=== PATIENT | male | born 1960 | race Caucasian/White ===

== ENCOUNTER → 2016-05-24 | Outpatient (CLI) | payer OTHER ==
[~2016-05-24] MED LIST: ALBUAER INH; DOXY-300 PO; DXM/4 PO; FLUT0.0529 INTNAS; FOLI1TAB7 PO; GUAISYP4 PO; MULT-506 PO; ONDA8TAB6 PO; PRED-301 PO; PRED10TA PO; PROC1TAB5 PO; PROM25TA9 PO
--- NOTE | 2016-05-24 11:16 | DIAGNOSTIC IMAGING REPORT ---
CHEST 2 VIEWS ROUTINE HISTORY: Lung mass. Short of breath. COMPARISON: Chest 04/19/2016. FINDINGS: Progressive volume loss and within the right hemithorax. Increasing bilateral perihilar interstitial thickening/opacities. There is abnormal density overlying the right hilum with progressive right medial lung base density. No pneumothorax. No pleural effusions. IMPRESSION: 1. Progressive consolidation within the right lower lobe with associated volume loss. This may represent partial atelectasis the right lower lobe with associated progression of the airspace opacities. 2. Progressive perihilar reticulonodular interstitial thickening. Electronically signed by: Eugene Mederos M.D. 05/24/2016 11:21 AM Dictated Date/Time: 05/24/2016 11:14 AM
== END | disposition home or self-care (01) ==
LOC: C.RAD1850 10:54
PROVIDERS: ATTEND Internal Medicine Pulmonary Disease
DX: R91.8 Other nonspecific abnormal finding of lung field (principal)

== ENCOUNTER → 2016-08-21 | Outpatient (CLI) | payer OTHER ==
[~2016-08-21] MED LIST changes: -DOXY-300 PO; -PRED10TA PO
[2016-08-21 14:11] VITALS: BP 110/79; PULSE 114; TEMP 36.5; O2SAT 95
--- NOTE | 2016-08-21 15:19 | Radiation Oncology Follow-Up ---
Radiation Oncology Follow-Up Date of Visit Aug 21, 2016. (Ellie Lizama PA-C) Reason For Visit One-month follow-up (Ellie Lizama PA-C) Radiation Completion Date 07/23/16 (Ellie Lizama PA-C) Diagnosis (1) Lung cancer Status: Chronic Histology Subtype: adenocarcinoma Stage: IV Permanent Comment: STAGING: Lung, RLL, adenocarcinoma, [id number], stage UMESH ( metastatic disease to bilateral adrenal glands, intra-adbominal LNs) TREATMENT: 1. Carboplatin/Taxol chemotherapy - Dr. Viera - [place] 2. Carboplatin/Alimta chemotherapy - Dr. Aylin [place] [facility] [place]17/16 3. Status post completion of radiation therapy to PET-positive areas of the chest and bilateral adrenal glands. Radiation completed 04/02/2016 received 6000 cGy. 4. Metastatic disease to the brain - plan for WBRT - 07/06/2016 5. Status post completion of whole brain radiation therapy 07/23/2016 received 3000 cGy Last Edited By: Ellie Lizama on Jul 30, 2016 18:52 (Ellie Lizama PA-C) History of Present Illness Mr. 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 Patient was initially treated with chemotherapy and had an excellent response to treatment and then received consolidation chemotherapy which completed in March 2016. Of note, the patient did have a complication of adrenal crisis which was eventually controlled. More recently, the patient was having some headaches and Dr. Viera did order an MRI of the brain on 07/06/2016 which did reveal bilateral metastatic disease involving the brain. Dr. Viera did see the patient in follow -up evaluation recommended a course of whole brain radiation therapy. We are now seeing the patient follow up evaluation. Currently, the patient is relatively asymptomatic and his only complaint is headaches. He denies any focal neurologic deficits or any problems with his vision. Dr. Viera did prescribe him Decadron 4 mg 4 times a day. Status post completion of whole brain radiation therapy 07/23/2016 received 3000 cGy (Ellie Lizama PA-C) Interim History He's been doing well over this past month. He does have fatigue. He denies any headaches. There is some dryness of the ears externally and feeling of congestion of the ear canals. He has been seen by Dr. Viera. The dexamethasone was tapered and he is now down to prednisone 5 mg once a day. He started this dose approximate 2 weeks ago. At the end of treatment he had some mild nasal bleeding. This resolved without difficulty. This is not recurred. He does have some mild decrease in cognitive abilities. Dr. Dominguez has recommended a recheck MRI of the brain and that was scheduled for 09/17/2016. (Ellie Lizama PA-C) Allergies Coded Allergies: POLLEN (Unverified Allergy, Mild, POLLEN,DUST-NASAL CONGESTION, 04/19/16) Diphenhydramine (Verified Allergy, Unknown, Restless legs, 04/19/16) Ethanol (Verified Allergy, Unknown, Flushing, itching, rash, 04/19/16) Paclitaxel (Verified Allergy, Unknown, Flushing, itching, rash, 04/19/16) Polyoxyethylated [place] Oil (Verified Allergy, Unknown, Flushing, itching , rash, 04/19/16) Home Medications Scheduled Multivitamin (Multivitamin), 1 TAB PO DAILY Prednisone (Prednisone), 5 MG PO DAILY Scheduled PRN Albuterol Sulfate (Proventil Hfa), 2 PUFFS INH Q4H PRN for Shortness of Breath Fluticasone Propionate (Nasal) (Flonase), 2 SPRAYS INTNAS DAILY PRN for PRN Guaifenesin/Codeine (Robitussin-Ac Syrup), 5 ML PO Q6H PRN for Cough Review of Systems Gastrointestinal: Symptoms: WNL Oral: Symptoms: No Problems Respiratory: Symptoms: SOB With Exertion Respiratory Comments: sometimes sob on exertions, couple wks ago prod cough , clear now Urinary: Symptoms: WNL Skin: Other Skin Symptoms: laking, dry skin on head (Ellie Lizama PA-C) Physical Exam Vital Signs Date Time Temp Pulse Resp B/P Pulse Ox O2 Delivery O2 Flow Rate FiO2 08/21/16 14:11 36.5 114 18 110/79 95 Pain: Patient Pain Scale: 0 - 10 Initial Pain Intensity: 0.0 Fatigue: None General Appearance: no apparent distress Eyes: normal inspection, PERRL, EOMI, sclerae normal ENT: normal ENT inspection, hearing grossly normal, TMs normal (mild dryness of the auditory canals with no cerumen impaction. No erythema or drainage.) Neck: no adenopathy, thyroid normal Respiratory/Chest: lungs clear, no respiratory distress, no accessory muscle use Cardiovascular: regular rate, rhythm, no gallop, no murmur Abdomen: non tender, soft Extremities: no pedal edema Neurologic/Psychiatric: no motor/sensory deficits, alert, normal mood/affect Skin: warm/dry (Ellie Lizama PA-C) Assessment & Plan Plan: He was seen and examined by Dr. Garcia. He is scheduled for recheck MRI of the brain on 09/17/2016. Continue with follow-up in endocrinology. Future appointment has been scheduled. He continues on prednisone 5 mg daily. We asked him to return to our office in September. We'll review the findings of the MRI. He may call our office if he has the questions or concerns in the interim. (Ellie Lizama PA-C) I agree with note created by Ellie Lizama PA-C. I reviewed the patient's chart and information with her. I have examined and evaluated the patient. I reviewed relevant clinical information and answered the patient's and/or family' s questions. (Veeral. Garcia MD) Total Time In Follow-Up Visit 20 minutes speaking to the patient and performing examination. I spent 15 minutes reviewing information and completing this note. (Ellie Lizama PA-C) I spent 15 minutes examining and counseling the patient. (Veeral. Garcia MD) Copy To Jass Holland MD; Merrill Viera M.D. Problem Qualifiers (1) Lung cancer: Laterality: right Lung location: lower lobe of lung Qualified Codes: C34.31 - Malignant neoplasm of lower lobe, right bronchus or lung
== END | disposition home or self-care (01) ==
LOC: C.ONC 14:00
PROVIDERS: ATTEND Physician Assistant Medical
DX: Z08 Encounter for follow-up examination after completed treatment for malignant neoplasm (principal); Z92.3 Personal history of irradiation; Z85.118 Personal history of other malignant neoplasm of bronchus and lung

== ENCOUNTER → 2016-09-26 | Outpatient (CLI) | payer OTHER ==
[~2016-09-26] MED LIST changes: -DXM/4 PO; -PROM25TA9 PO
[2016-09-26 12:59] VITALS: BP 103/73; PULSE 92; TEMP 36.3; O2SAT 96
--- NOTE | 2016-09-26 16:55 | Radiation Oncology Follow-Up ---
Radiation Oncology Follow-Up Date of Visit September 26, 2016. (Ellie Lizama PA-C) Reason For Visit 2 month follow-up (Ellie Lizama PA-C) Radiation Completion Date Chest/bilateral adrenal glands 04/02/16;Brain 07/23/16 (Ellie Lizama PA-C) Diagnosis (1) Lung cancer Status: Chronic Onset Date: 11/03/2014 Stage: IV Permanent Comment: STAGING: Lung, RLL, adenocarcinoma, [id number], stage UMESH ( metastatic disease to bilateral adrenal glands, intra-adbominal LNs) TREATMENT: 1. Carboplatin/Taxol chemotherapy - Dr. Viera - [place] 2. Carboplatin/Alimta chemotherapy - Dr. Aylin [place] - last cycle 01/17/16 3. Status post completion of radiation therapy to PET-positive areas of the chest and bilateral adrenal glands. Radiation completed 04/02/2016 received 6000 cGy. 4. Metastatic disease to the brain - plan for WBRT - 07/06/2016 5. Status post completion of whole brain radiation therapy 07/23/2016 received 3000 cGy Last Edited By: Ellie Lizama on Jul 30, 2016 18:52 (Ellie Lizama PA-C) History of Present Illness Mr. 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 Patient was initially treated with chemotherapy and had an excellent response to treatment and then received consolidation chemotherapy which completed in March 2016. Of note, the patient did have a complication of adrenal crisis which was eventually controlled. More recently, the patient was having some headaches and Dr. Viera did order an MRI of the brain on 07/06/2016 which did reveal bilateral metastatic disease involving the brain. Dr. Viera did see the patient in follow -up evaluation recommended a course of whole brain radiation therapy. We are now seeing the patient follow up evaluation. Currently, the patient is relatively asymptomatic and his only complaint is headaches. He denies any focal neurologic deficits or any problems with his vision. Dr. Viera did prescribe him Decadron 4 mg 4 times a day. Status post completion of whole brain radiation therapy 07/23/2016 received 3000 cGy (Ellie Lizama PA-C) Interim History He has been doing well over the past 2 months. Steady increase of energy levels. Occasional minor headache. He rates this a level 0.5-1. This is located in the occipital area. He has no associated nausea with headaches. He has noticed on rare occasions some cognitive difficulties. This occurred when he was getting gas and cannot remember if he swiped his credit card. He has seen Dr. Dominguez in follow-up and had a recheck MRI of the brain. The MRI was performed on 09/17/2016. This showed 7 discrete intraparenchymal enhancing lesions are identified which have all decreased in size compared to an MRI of the 07/06/2016. He previously depicted punctate enhancing focus within the left frontal lobe subcortical white matter is not clearly appreciated on the current examination, possibly secondary to interval resolution. The largest enhancing lesion is within the right frontal lobe and measures up to roughly 1.7 x 1.5 x 1.3 cm. Interval decrease in associated mass effect and vasogenic edema, with regions of persistent edema, as described. No specific significant cerebellar tonsillar herniation. No definite discrete suspicious calvarial marrow lesion is identified. 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 He weaned off of Decadron. He does continue on a daily dose of prednisone. (Ellie Lizama PA-C) Allergies Coded Allergies: POLLEN (Unverified Allergy, Mild, POLLEN,DUST-NASAL CONGESTION, 04/19/16) Diphenhydramine (Verified Allergy, Unknown, Restless legs, 04/19/16) Ethanol (Verified Allergy, Unknown, Flushing, itching, rash, 04/19/16) Paclitaxel (Verified Allergy, Unknown, Flushing, itching, rash, 04/19/16) Polyoxyethylated [place] Oil (Verified Allergy, Unknown, Flushing, itching , rash, 04/19/16) Home Medications Scheduled Multivitamin (Multivitamin), 1 TAB PO DAILY Prednisone (Prednisone), 5 MG PO DAILY Scheduled PRN Albuterol Sulfate (Proventil Hfa), 2 PUFFS INH Q4H PRN for Shortness of Breath Fluticasone Propionate (Nasal) (Flonase), 2 SPRAYS INTNAS DAILY PRN for PRN Guaifenesin/Codeine (Robitussin-Ac Syrup), 5 ML PO Q6H PRN for Cough Review of Systems Gastrointestinal: Symptoms: Nausea, Vomiting, Constipation GI Comments: Nausea with intermittent vomiting over past 1-2 weeks; Oral: Symptoms: No Problems Respiratory: Symptoms: Dry Cough, SOB With Exertion Other Respiratory: Reports this isn't a change for him;Doesn't use oxygen; Urinary: Symptoms: WNL Skin: Symptoms: No Problems (Ellie Lizama PA-C) Physical Exam Vital Signs Date Time Temp Pulse Resp B/P Pulse Ox O2 Delivery O2 Flow Rate FiO2 09/26/16 12:59 36.3 92 24 103/73 96 Fatigue: None General Appearance: no apparent distress Eyes: normal inspection, EOMI ENT: normal ENT inspection, hearing grossly normal, + pertinent finding ( bilateral cerumen right greater than left) Neck: no adenopathy, thyroid normal Respiratory/Chest: lungs clear, no respiratory distress, no accessory muscle use Cardiovascular: regular rate, rhythm, no gallop, no murmur Extremities: no pedal edema 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 (Ellie Lizama PA-C) Assessment & Plan Plan: Patient was seen and examined by Dr. Garcia. His energy level should steadily improve. The MRI results were reviewed with the patient. He has had excellent response to treatment with study decrease in size of the lesions. He has no new lesions. Dr. Garcia is recommended a recheck MRI of the brain in 2 months. He'll have a follow-up appointment following the MRI. For the cerumen in his ears it was suggested he try the [employer] earwax system. He may call our office if he has any questions or concerns in the interim. (Ellie Lizama PA-C) I agree with note created by Ellie Lizama PA-C. I reviewed the patient's chart and information with her. I have examined and evaluated the patient. I reviewed relevant clinical information and answered the patient's and/or family' s questions. (Veeral. Garcia MD) Total Time In Follow-Up We spent 25 minutes speaking to the patient in performing examination. I spent 15 minutes reviewing information in completing this note. (Ellie Lizama PA-C) I spent 15 minutes examining and counseling the patient. (Veeral. Garcia MD) Copy To Jass Holland MD; Merrill Viera M.D. Problem Qualifiers (1) Lung cancer: Laterality: right Lung location: upper lobe of lung Qualified Codes: C34.11 - Malignant neoplasm of upper lobe, right bronchus or lung
== END | disposition home or self-care (01) ==
LOC: C.ONC 12:51
PROVIDERS: ATTEND Physician Assistant Medical
DX: Z08 Encounter for follow-up examination after completed treatment for malignant neoplasm (principal); Z85.118 Personal history of other malignant neoplasm of bronchus and lung; Z92.3 Personal history of irradiation

== ENCOUNTER → 2016-11-22 | Outpatient (CLI) | payer OTHER ==
[2016-11-22 13:48] VITALS: BP 109/67; PULSE 104; TEMP 37; O2SAT 96
--- NOTE | 2016-11-22 16:47 | Radiation Oncology Follow-Up ---
Radiation Oncology Follow-Up Date of Visit Nov 22, 2016. (Ellie Lizama PA-C) Reason For Visit Four-month follow-up (Ellie Lizama PA-C) Radiation Completion Date Chest - 04/02/16, Brain - 07/23/16 (Ellie Lizama PA-C) Diagnosis (1) Lung cancer Status: Chronic Onset Date: 11/03/2014 Histology Subtype: adenocarcinoma Stage: IV Permanent Comment: STAGING: Lung, RLL, adenocarcinoma, [id number], stage UMESH ( metastatic disease to bilateral adrenal glands, intra-adbominal LNs) TREATMENT: 1. Carboplatin/Taxol chemotherapy - Dr. Viera - [facility] 2. Carboplatin/Alimta chemotherapy - Dr. Aylin [place] [facility] - last cycle 01/17/16 3. Status post completion of radiation therapy to PET-positive areas of the chest and bilateral adrenal glands. Radiation completed 04/02/2016 received 6000 cGy. 4. Metastatic disease to the brain - plan for WBRT - 07/06/2016 5. Status post completion of whole brain radiation therapy 07/23/2016 received 3000 cGy Last Edited By: Ellie Lizama on Jul 30, 2016 18:52 (Ellie Lizama PA-C) History of Present Illness Mr. 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 Patient was initially treated with chemotherapy and had an excellent response to treatment and then received consolidation chemotherapy which completed in March 2016. Of note, the patient did have a complication of adrenal crisis which was eventually controlled. More recently, the patient was having some headaches and Dr. Viera did order an MRI of the brain on 07/06/2016 which did reveal bilateral metastatic disease involving the brain. Dr. Viera did see the patient in follow -up evaluation recommended a course of whole brain radiation therapy. We are now seeing the patient follow up evaluation. Currently, the patient is relatively asymptomatic and his only complaint is headaches. He denies any focal neurologic deficits or any problems with his vision. Dr. Viera did prescribe him Decadron 4 mg 4 times a day. Status post completion of whole brain radiation therapy 07/23/2016 received 3000 cGy (Ellie Lizama PA-C) Interim History He is been doing well over the past 2 months. The headaches that he was having have become less frequent and less painful. He describes these as a mild headache across the back of the posterior occipital area. He'll take Aleve and this resolves. Over this past week he is taking Aleve twice. He has seen Dr. Dominguez in follow-up and had recheck studies. MRI of the brain revealed resolution of previously seen punctate focus of enhancement in the right frontal lobe area interval decrease in size of previously seen additional 6 discrete foci of enhancement involving bilateral cerebral hemispheres, suggestive of treatment response. Interval improvement of the vasogenic edema associated with some of these lesions. He also had a PET/CT which did show a new FDG avid soft tissue change with nodules consistent with metastatic disease superior to the inferior margin of the left scapula. There is just anterior to the left psoas muscle within the retroperitoneum. FDG avidity corresponding to a new right posterior eighth rib fracture. Stable low level activity within fibrotic changes in the right hilum along the right mediastinal border consistent with radiation-induced fibrosis. With these changes Dr. Viera has recommended the patient restart chemotherapy he'll be starting single agent Alimta next Saturday. He is to receive this every 3 weeks. He did note that previously he does recall injuring his rib. He does not have any pain in this area now. (Ellie Lizama PA-C) Allergies Coded Allergies: POLLEN (Unverified Allergy, Mild, POLLEN,DUST-NASAL CONGESTION, 04/19/16) Diphenhydramine (Verified Allergy, Unknown, Restless legs, 04/19/16) Ethanol (Verified Allergy, Unknown, Flushing, itching, rash, 04/19/16) Paclitaxel (Verified Allergy, Unknown, Flushing, itching, rash, 04/19/16) Polyoxyethylated [place] Oil (Verified Allergy, Unknown, Flushing, itching , rash, 04/19/16) Home Medications Scheduled Folic Acid (Folvite), 1 TAB PO DAILY Multivitamin (Multivitamin), 1 TAB PO DAILY Prednisone (Prednisone), 5 MG PO DAILY Scheduled PRN Albuterol Sulfate (Proventil Hfa), 2 PUFFS INH Q4H PRN for Shortness of Breath Fluticasone Propionate (Nasal) (Flonase), 2 SPRAYS INTNAS DAILY PRN for PRN Guaifenesin/Codeine (Robitussin-Ac Syrup), 5 ML PO Q6H PRN for Cough Review of Systems Gastrointestinal: Symptoms: Nausea, Vomiting, Constipation, Diarrhea GI Comments: Nausea and dry heaves 2-3x/month, goes between diarrhea/ constipation Oral: Symptoms: No Problems Respiratory: Symptoms: SOB With Exertion Other Respiratory: Dry cough at times - Sporadic Urinary: Symptoms: WNL Skin: Symptoms: No Problems Other Skin Symptoms: Reports skin on head is dry (Ellie Lizama PA-C) Physical Exam Vital Signs Date Time Temp Pulse Resp B/P (MAP) Pulse Ox O2 Delivery O2 Flow Rate FiO2 11/22/16 13:48 37.0 104 16 109/67 96 Fatigue: None General Appearance: no apparent distress Eyes: normal inspection, PERRL, EOMI ENT: normal ENT inspection, hearing grossly normal, TMs normal (mild cerumen), pharynx normal (mild white appearance to saliva.) Neck: no adenopathy, thyroid normal Respiratory/Chest: lungs clear, no respiratory distress, no accessory muscle use Cardiovascular: regular rate, rhythm, no gallop, no murmur Extremities: no pedal edema Neurologic/Psychiatric: 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 DATE OF DICTATION:11/14/2016 COMPARISON MRI dated 11/14/2016 and PET-CT dated 07/04/2016. TECHNIQUE Following the intravenous administration of approximately 7.43 mCi of FDG 18 and the oral administration of Gastrografin, PET/CT imaging was performed from the skull base to the mid thighs 60 minutes following the radiotracer injection. Low-dose CT was performed for anatomic localization and attenuation correction purposes only. The patient's glucose level at the time of radiotracer injection was 87mg/dL. This is a follow up PET/CT for the above indication. FINDINGS PET SCAN: Head / Neck: The previous hypo metabolism within the right frontal lobe is no longer included in the field of view. No other abnormal uptake can be identified. Chest: There is decreasing low level activity corresponding to fibrosis along the right hilar margin, likely secondary to prior radiation therapy. There is a small soft tissue nodule, just superficial to the left scapular musculature. Has a maximum SUV of 7.77. There is FDG activity corresponding to right posterior 8th rib fracture. There is low level activity corresponding to subpleural consolidation in the lateral basilar aspect of the right lower lobe. Abdomen: There is a new FDG avid 1.5 x 1.9 cm lymph node/nodule along the anterior margin of the left psoas muscle. It has a maximum SUV of 10.86, most consistent with neoplasm. Pelvis: There is mild focal activity within a sigmoid diverticulum, likely representing inflammation. No other abnormal uptake can be identified. Musculoskeletal / Other: Large segments of absent marrow activity present throughout the thoracic and lumbar spine. Patchy areas of degenerative type uptake are present. Uptake within the right posterior rib fracture as detailed above. CT SCAN: Head / Neck: Please see concurrent MRI of the brain for more complete intracranial evaluation. No acute process identified in the neck. Chest: Postradiation changes are present along the right hilar and right mediastinal margin. The overall appearance is similar to the previous examination. Traction bronchiectasis is present within the regions of fibrosis. Centrilobular emphysematous changes are present throughout both lungs. Peripheral bleb formation is noted. Bovine arch anomaly is incidentally noted, a variation of normal. Abdomen: Calcified adrenal nodules are again noted. The new para-aortic lymph node/ nodule is as detailed above. High-density material present within the urinary tract consistent with gadolinium excretion from the previous MRI. No other acute process identified. Atherosclerotic calcifications are present. Pelvis: There is sigmoid diverticulosis. High-density material present within the bladder as detailed above. Prostate calcifications are present. Musculoskeletal / Other: Degenerative changes present throughout the bony structures with mild convex right scoliosis of the spine. The right posterior 8th rib fracture is new since the previous examination. This is likely secondary to the previously radiated field, however, other etiologies cannot be entirely excluded. This soft tissue nodule superficial to the left inferior scapula is most consistent with metastatic disease. IMPRESSION 1. New FDG avid soft tissue nodules consistent metastatic disease. One is superficial to the inferior margin of the left scapula and the other is just anterior to the left psoas muscle, within the retroperitoneum. 2. FDG activity corresponding to a new right posterior 8th rib fracture. This could represent an insufficiency type rib fracture within a previously radiated field. Other etiologies or pathologic involvement are difficult to entirely exclude but felt less likely. 3. Stable low level activity within fibrotic changes at the right hilum along the right mediastinal border consistent with radiation induced fibrosis. 4. Please see current MRI of the brain for detailed intracranial evaluation. Authenticated By Authenticating Date Authenticating Time Reading Providers(s) JASE PIERRE MD 11-14-2016 15:55 JASE PIERRE MD 11/14/2016 2:55 PM - Interface, Rad In Narrative EXAM MR BRAIN WITH/WITHOUT CONTRAST - 11/14/2016 8:52 am HISTORY Prior history of brain metastases from lung cancer. Status post radiation. Assess status of brain. COMPARISON MR BRAIN WITH/WITHOUT CONTRAST dated 09/17/2016 TECHNIQUE Procedure: Multi-planar multi-sequential imaging obtained through the brain before and after administration of IV contrast. FINDINGS The previously seen punctate foci of enhancement in right frontal lobe is not appreciated on today's exam, likely representing interval resolution. There has been interval decrease in size of previously-seen 6 discrete foci of enhancement involving bilateral cerebral hemispheres with largest focus in the right frontal lobe measuring 1 cm in the longest dimension, previously 1.7 cm. There has been interval improvement of previously seen surrounding vasogenic edema associated with some of these lesions. A developmental venous anomaly is again noted in right paramedian parietal lobe the pain at distal focus of susceptibility, unchanged. . The superior sagittal sinus demonstrates normal venous flow. The corpus callosum is normal in shape and signal intensity. The posterior fossa is unremarkable. The pituitary and sella are normal. The brainstem and craniocervical junction are unremarkable. Diffusion weighted images reveal no hyperintensities to suggest acute cerebral infarction. The ventricles are normal in size and position without evidence of hydrocephalus. The paranasal sinuses are normal. The visualized portions of the mastoids are unremarkable. The orbits appear normal. Normal flow voids are demonstrated in the carotid arteries and basilar artery. IMPRESSION 1. Interval resolution of previously seen punctate focus of enhancement in the right frontal lobe. Interval decrease in size of previously seen additional 6 discrete foci of enhancement involving bilateral cerebral hemispheres, suggestive of treatment response. Interval improvement of the vasogenic edema associated with some of these lesions. 2. 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 Authenticated By Authenticating Date Authenticating Time Reading Providers(s) OCTAVIA PEREZ MD 11-14-2016 14:55 OCTAVIA PEREZ MD (Ellie Lizama PA-C) Assessment & Plan He was seen and examined by Dr. Garcia. The PET/CT as well as MRI were reviewed. He'll be restarting chemotherapy next Saturday with Sherry. Recommendation was for a recheck MRI in 2 months. We'll plan to perform that at [facility] following the [facility] protocol. We'll have him return to our office following a recheck MRI. We discussed steadily increasing his activities. He is going to start walking on a regular basis. He'll start at a slow pace and then increase. His been doing some light weight lifting. We discussed possible mild thrush. Because he takes prednisone daily this can be a recurring problem. We discussed eating activia to increase normal lynette. (Ellie Lizama PA-C) I agree with note created by Ellie Lizama PA-C. I reviewed the patient's chart and information with her. I have examined and evaluated the patient. I reviewed relevant clinical information and answered the patient's and/or family' s questions. (Veeral. Garcia MD) Total Time In Follow-Up I spent 20 minutes speaking to the patient and performing examination. I spent 15 minutes reviewing her information in completing this note. AK (Ellie Lizama PA-C) I spent 15 minutes examining and counseling the patient. REHABILITATION NURSE (Veeral. Garcia MD) Copy To Jass Holland MD; Merrill Viera M.D. Problem Qualifiers (1) Lung cancer: Laterality: right Lung location: lower lobe of lung Qualified Codes: C34.31 - Malignant neoplasm of lower lobe, right bronchus or lung
== END | disposition home or self-care (01) ==
LOC: C.ONC 13:40
PROVIDERS: ATTEND Physician Assistant Medical
DX: Z08 Encounter for follow-up examination after completed treatment for malignant neoplasm (principal); Z92.3 Personal history of irradiation; Z85.118 Personal history of other malignant neoplasm of bronchus and lung

== ENCOUNTER → 2017-01-11 | Outpatient (CLI) | payer OTHER ==
[~2017-01-11] MED LIST changes: +GADAVIST IV PRN
--- NOTE | 2017-01-11 12:18 | DIAGNOSTIC IMAGING REPORT ---
MRI OF THE BRAIN WITHOUT AND WITH IV CONTRAST CLINICAL HISTORY: Metastatic lung cancer. COMPARISON STUDY: MRI of the brain September 17, 2016. TECHNIQUE: Utilizing a 1.5 Marium magnet and dedicated coil, multiplanar, multiecho imaging of the brain was performed pre and postcontrast administration. IV administration of 8.8 mL of Gadavist contrast was uneventful. Thin cut post contrast imaging was performed with multiplanar reconstructions. FINDINGS: There are no areas of restricted diffusion. No acute intracranial hemorrhage, midline shift or mass effect is present. Ventricular system is normal. Basilar cisterns are patent. Flow-voids for the major intracranial vessels are present. Numerous enhancing lesion shown on MRI of September 17, 2016 have significantly decreased in size since prior exam. The largest lesion is within the right frontal lobe, now measuring 1 x 0.8 cm. This lesion previously measured 1.5 x 1.2 cm. Associated vasogenic edema has markedly improved. A 4 mm left occipital lobe lesion shown on image 91 of 134 previously measured 6 mm. A left occipital lobe lesion shown on image 67 is nearly imperceptible on this exam. A 5 mm right occipital lobe lesion shown image 55 has slightly decreased in size since prior exam. No new lesions are present with their no calvarial lesions. IMPRESSION: Findings consistent with a partial, but significant, treatment response since MRI of September 17, 2016. Significant decrease in size of multiple supratentorial metastases since prior MRI with improvement in associated vasogenic edema. No new lesions identified. Electronically signed by: Ben Mcmullen M.D. 01/11/2017 12:17 PM Dictated Date/Time: 01/11/2017 12:05 PM
== END | disposition home or self-care (01) ==
LOC: C.MRI 10:28
PROVIDERS: ATTEND Physician Assistant Medical
DX: C34.31 Malignant neoplasm of lower lobe, right bronchus or lung (principal); C79.31 Secondary malignant neoplasm of brain; C79.70 Secondary malignant neoplasm of unspecified adrenal gland

== ENCOUNTER → 2017-03-29 | Outpatient (CLI) | payer OTHER, MEDICARE ==
[~2017-03-29] MED LIST changes: -FOLI1TAB7 PO; +FOLI1TAB8 PO; -GADAVIST IV PRN; +ONDA-170 PO; -ONDA8TAB6 PO; +OPDIVO IV; +PROC10TA PO; -PROC1TAB5 PO; +VALA500T60 PO
[2017-03-29 10:42] VITALS: BP 112/72; PULSE 88; TEMP 36.4; O2SAT 97
--- NOTE | 2017-03-29 14:41 | Radiation Oncology Follow-Up ---
Radiation Oncology Follow-Up Date of Visit Mar 29, 2017. Reason For Visit One-month follow-up Radiation Completion Date SBRT 02/19/17 Diagnosis (1) Lung cancer Status: Chronic Onset Date: 11/03/2014 Location: brain metastasis Stage: IV Permanent Comment: STAGING: Lung, RLL, adenocarcinoma, [id number], stage UMESH ( metastatic disease to bilateral adrenal glands, intra-adbominal LNs) TREATMENT: 1. Carboplatin/Taxol chemotherapy - Dr. Viera [place] [facility] [place] 2. Carboplatin/Alimta chemotherapy - Dr. Viera - [facility] [place] - last cycle 01/17/16 3. Status post completion of radiation therapy to PET-positive areas of the chest and bilateral adrenal glands. Radiation completed 04/02/2016 received 6000 cGy. 4. Metastatic disease to the brain - plan for WBRT - 07/06/2016 5. Status post completion of whole brain radiation therapy 07/23/2016 received 3000 cGy 6. Status post brain SBRT completed 02/19/2017 received 3000 cGy Last Edited By: Ellie Lizama on Feb 28, 2017 09:45 History of Present Illness Mr. 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 Patient was initially treated with chemotherapy and had an excellent response to treatment and then received consolidation chemotherapy which completed in March 2016. Of note, the patient did have a complication of adrenal crisis which was eventually controlled. More recently, the patient was having some headaches and Dr. Viera did order an MRI of the brain on 07/06/2016 which did reveal bilateral metastatic disease involving the brain. Dr. Viera did see the patient in follow-up evaluation recommended a course of whole brain radiation therapy. We are now seeing the patient follow up evaluation. Currently, the patient is relatively asymptomatic and his only complaint is headaches. He denies any focal neurologic deficits or any problems with his vision. Dr. Viera did prescribe him Decadron 4 mg 4 times a day. Status post completion of whole brain radiation therapy 07/23/2016 received 3000 cGy He is been doing well over the past 2 months. The headaches that he was having have become less frequent and less painful. He describes these as a mild headache across the back of the posterior occipital area. He'll take Aleve and this resolves. Over this past week he is taking Aleve twice. He has seen Dr. Dominguez in follow-up and had recheck studies. MRI of the brain revealed resolution of previously seen punctate focus of enhancement in the right frontal lobe area interval decrease in size of previously seen additional 6 discrete foci of enhancement involving bilateral cerebral hemispheres, suggestive of treatment response. Interval improvement of the vasogenic edema associated with some of these lesions. He also had a PET/CT which did show a new FDG avid soft tissue change with nodules consistent with metastatic disease superior to the inferior margin of the left scapula. There is just anterior to the left psoas muscle within the retroperitoneum. FDG avidity corresponding to a new right posterior eighth rib fracture. Stable low level activity within fibrotic changes in the right hilum along the right mediastinal border consistent with radiation- induced fibrosis. With these changes Dr. Viera has recommended the patient restart chemotherapy he'll be starting single agent Alimta next Saturday. He is to receive this every 3 weeks. He did note that previously he does recall injuring his rib. He does not have any pain in this area now. Status post completion of whole brain radiation 07/23/2016. He received 3000 cGy He continues on chemotherapy. He is receiving Alimta every 3 weeks. He does have associated fatigue. He has nausea without vomiting. His respiratory status is stable. He does note shortness of breath with exertion. He is able to take breaks and recovering 5 minutes. He previously had oxygen at home. He was not using this so he returned it to the supplier. He does have a home pulse oximeter. He stated that he will be continuing the Alimta until the end of January. Dr. Viera has planned a recheck PET scan at that time. He denies any problems with frequent headaches. He has had no visual changes. He is noted no asymmetric weakness. He continues on his daily dose of prednisone which covers treatment of the RA as well as his adrenal insufficiency. More recently, the patient did have a repeat MRI of the brain completed on 01/11 which revealed stable disease with improvement in several areas. At this point, we have recommended consideration for consolidative linear accelerator based stereotactic radiosurgery to his remaining areas of disease given his good overall response and good performance status. Status post completion of brain SBRT 02/19/2017. He received 3000 cGy. Interim History He is been doing well over the past month. He does continue to have some decreased hearing due to your wax. We have previously discussed using over-the- counter medication. He had forgotten about this discussion and will plan to get [id number] Murine earwax system. He denies headaches. His energy levels are steadily improving. He feels his respiratory status is stable. His appetite is good and weight is stable. He feels that he has become more sedentary over the past few months. He is planning to join the [facility] and start regular exercise program. He has been followed closely by Dr. Viera and had recheck scanning. This unfortunately did show some progression. They have discussed restarting treatment with Keytruda. It is planned that he'll continue on a chemotherapy holiday for the next month. Dr. iVera will be retiring and he will be followed by Dr. Cleveland Garcia. Allergies Coded Allergies: POLLEN (Unverified Allergy, Mild, POLLEN,DUST-NASAL CONGESTION, 04/19/16) Diphenhydramine (Verified Allergy, Unknown, Restless legs, 04/19/16) Ethanol (Verified Allergy, Unknown, Flushing, itching, rash, 04/19/16) Paclitaxel (Verified Allergy, Unknown, Flushing, itching, rash, 04/19/16) Polyoxyethylated [place] Oil (Verified Allergy, Unknown, Flushing, itching , rash, 04/19/16) Home Medications Scheduled Multivitamin (Multivitamin), 1 TAB PO DAILY Prednisone (Prednisone), 5 MG PO DAILY Scheduled PRN Albuterol Sulfate (Proventil Hfa), 2 PUFFS INH Q4H PRN for Shortness of Breath Fluticasone Propionate (Nasal) (Flonase), 2 SPRAYS INTNAS DAILY PRN for PRN Guaifenesin/Codeine (Robitussin-Ac Syrup), 5 ML PO Q6H PRN for Cough Ondansetron Hcl (Zofran), 8 MG PO TID PRN for Nausea Prochlorperazine Maleate (Compazine), 1 TAB PO Q6 PRN for Nausea or Vomiting Review of Systems Gastrointestinal: Symptoms: WNL Oral: Symptoms: No Problems Respiratory: Symptoms: Dry Cough, SOB With Exertion, Productive Cough Sputum Character: "White phlegm" when productive - improving Other Respiratory: SOB w/exertion - improving Urinary: Symptoms: WNL Skin: Symptoms: No Problems Physical Exam Vital Signs Date Time Temp Pulse Resp B/P (MAP) Pulse Ox O2 Delivery O2 Flow Rate FiO2 03/29/17 10:42 36.4 88 16 112/72 97 Fatigue: None General Appearance: no apparent distress Eyes: normal inspection, EOMI ENT: normal ENT inspection, hearing grossly normal, + pertinent finding (dry cerumen in the auditory canals) Neck: no adenopathy, thyroid normal Respiratory/Chest: no respiratory distress, no accessory muscle use, + rales ( mild in the right lower lung hoang. These cleared with deep respiration.) Cardiovascular: regular rate, rhythm, no gallop, no murmur Extremities: no pedal edema Neurologic/Psychiatric: no motor/sensory deficits, alert, normal mood/affect Pain Management Patient Reports Pain: No Pain Location: None Patient Preferred Pain Scale: 0 - 10 Initial Pain Intensity: 0.0 Pain Management Plan He denies pain and is therefore not requiring pain management. Laboratory Laboratory Results: not applicable Pathology Pathology Results: not applicable Imaging Imaging Studies: were reviewed, and pertinent findings noted below Imaging Comments Date/Time of Imaging Study Study Completed: 02/27/2017 10:03 AM [facility] PACS Image Narrative EXAM PET CT SKULL BASE TO MID THIGH FDG - 02/27/2017 10:03 am HISTORY Right lower lobe lung adenocarcinoma status post chemoradiation therapy with metastasis to the adrenal glands and brain status post radiation treatment. DATE OF DICTATION: 02/27/2017 COMPARISON Multiple PET-CT dating from 01/26/2015, the most recent dated 11/14/2016. Brain MR dated 11/14/2016. TECHNIQUE Following the intravenous administration of approximately 8.25 mCi of FDG 18 and the oral administration of Gastrografin, PET/CT imaging was performed from the skull base to the mid thighs 60 minutes following the radiotracer injection. The patient's glucose level at the time of radiotracer injection was 91mg/dL. This is a follow up PET/CT for the above indication. FINDINGS PET SCAN: Head/Neck: Physiologic FDG activity is present within the brain, salivary glands , and pharyngeal mucosa. No metabolically active cervical lymphadenopathy. Chest: - Stable fibrosis in the right hilum with traction bronchiectasis and minimal metabolic activity. - Increased activity in the right lower lobe in the path of the radiation beam, likely radiation pneumonitis. - Low level activity corresponding subpleural consolidation lateral basilar aspect of the right lower lobe. - New 7 mm paraesophageal lymph node with mild metabolic activity (SUV max 4.3). - Subcutaneous soft tissue density over the left scapular musculature is slightly smaller measuring 1.5 from 1.8 but stable in metabolic activity (SUV max 7.8 from 7.8). Abdomen/Pelvis: - New R 1.7 cm subtle ill-defined hypodensity in the right lobe of the liver with increase metabolic activity (SUV max 5.6). - Decreased activity of left psoas muscle lymph node, stable in size measuring 1.9 x 1.6 cm from 1.9 x 1.5 cm (SUV max 2.6 from 10.9). - Bilateral calcified adrenal glands without significant metabolic activity. - Focus of mildly increased activity in the sigmoid colon over opacified diverticulum (SUV max 5.8), may represent inflammation. - Physiologic FDG activity is present within the gastrointestinal and genitourinary system. Musculoskeletal: Right posterior 8th rib fracture with mild metabolic activity and evidence of healing at (SUV max 3.4). ADDITIONAL CT FINDINGS: Head / Neck: No additional findings. Chest: Mild aortic atherosclerosis and coronary artery calcifications. Mild thickening of the pericardium, likely due to radiation therapy. Centrilobular emphysema. Focus of ground-glass opacity in the left lower lobe. Abdomen / Pelvis: Sigmoid diverticulosis. Coarse prostatic calcifications. Small right fat containing inguinal hernia. Musculoskeletal / Other: Degenerative changes of the spine. IMPRESSION 1. Progression of disease with new likely metastatic right hepatic lobe lesion and paraesophageal lymph node. 2. Right posterior 8th rib fracture with evidence of healing, likely secondary to radiation therapy but cannot exclude other etiologies. 3. Stable fibrosis in the right hilum consistent with radiation induced fibrosis. 4. Increased metabolic activity in the right lower lobe, likely radiation pneumonitis. I have personally reviewed this examination and agree with the resident/fellow physician's interpretation. Resident Physician: SADAF KENT [[id number]] Radiologist: JASE PIERRE MD [[id number]] Authenticated By Authenticating Date Authenticating Time Reading Providers(s) JASE PIERRE MD 02-27-2017 15:16 JASE PIERRE MD Assessment & Plan Plan: Patient is also seen and examined by Dr. Garcia. I've given him a written instructions about the near renal earwax system. He can use this to help remove the cerumen. If this persists we will refer him to ENT. He'll be following with Dr. Cleveland Garcia and there has been discussion of using Keytruda chemotherapy. He is currently on a chemotherapy holiday. He is going to begin regular exercise to increase his stamina. We asked him to return to our office in 2 months. We'll plan for recheck MRI prior to that visit. Assessment & Plan (Attending) ADDENDUM: I agree with note created by Ellie Lizama PA-C. I reviewed the patient's chart and information with her. I have examined and evaluated the patient. I reviewed relevant clinical information and answered the patient's and /or family's questions. [employer] Total Time In Follow-Up I spent 20 minutes speaking to the patient performing examination. I spent 15 minutes reviewing information and completing this note. Total Time (Attending) In Follow-Up I spent 15 minutes examining and counseling the patient. [employer] Copy To Jass Holland MD; Cleveland Garcia M.D.
== END | disposition home or self-care (01) ==
LOC: C.ONC 10:13
PROVIDERS: ATTEND Physician Assistant Medical
DX: Z08 Encounter for follow-up examination after completed treatment for malignant neoplasm (principal); Z92.3 Personal history of irradiation; Z85.118 Personal history of other malignant neoplasm of bronchus and lung

== ENCOUNTER → 2017-05-24 | Outpatient (CLI) | payer OTHER, MEDICARE ==
[~2017-05-24] MED LIST changes: -FOLI1TAB8 PO; +GADAVIST IV PRN; -ONDA-170 PO; +ONDA8TAB6 PO; -OPDIVO IV; -PROC10TA PO; +PROC1TAB5 PO; -VALA500T60 PO
--- NOTE | 2017-05-24 14:46 | DIAGNOSTIC IMAGING REPORT ---
MRI OF THE BRAIN WITHOUT AND WITH IV CONTRAST CLINICAL HISTORY: Lung adenocarcinoma with brain metastases status post chemoradiation and immunotherapy. COMPARISON STUDY: MRI of the brain January 11, 2017. TECHNIQUE: Utilizing a 1.5 Marium magnet and dedicated coil, multiplanar, multiecho imaging of the brain was performed pre and postcontrast administration. IV administration of 8.5 mL of Gadavist contrast was uneventful. Thin cut post contrast imaging was performed with multiplanar reconstructions. FINDINGS: There are no foci of restricted diffusion. No acute intracranial hemorrhage, midline shift or mass effect is present. There has been continued decrease in size of the enhancing right frontal lobe lesion shown on axial image 96 of 128 of the thin cut postcontrast sequence. This linear focus of enhancement now measures 0.8 x 0.4 cm. It previously measured 1 x 0.8 cm on MRI of January 11, 2017. Associated signal abnormality on the T2-weighted sequence is similar to prior MRI. A 4 mm left occipital focus shown image 75 is similar to prior MRI. A 3 mm right occipital lobe focus of enhancement shown on image 49 has decreased since prior exam when it measured 5 mm. No new lesions are identified. The additional previously described lesions are no longer identified consistent with a treatment response. Ventricular system is normal. Basilar cisterns are patent. There are no extra-axial collections. Flow-voids for the major intracranial vessels are present. Moderate periventricular white matter T2 hyperintensity has increased since exam of January 11, 2017. There is no associated enhancement. IMPRESSION: 1. Continued decrease in size of several small enhancing parenchymal lesions since MRI of January 11, 2017. The findings represent a continued treatment response with several residual small enhancing foci. No new metastases. 2. Moderate periventricular white matter T2 hyperintensity which has increased since exam of January 11, 2017. No associated enhancement. This is likely treatment related and can be assessed on subsequent exams. Electronically signed by: Ben Mcmullen M.D. 05/24/2017 2:45 PM Dictated Date/Time: 05/24/2017 2:28 PM
== END | disposition home or self-care (01) ==
LOC: C.MRI 13:19
PROVIDERS: ATTEND Physician Assistant Medical
DX: C34.31 Malignant neoplasm of lower lobe, right bronchus or lung (principal); C79.31 Secondary malignant neoplasm of brain

== ENCOUNTER → 2017-06-04 | Outpatient (CLI) | payer OTHER, MEDICARE ==
[2017-03-29 10:42] VITALS: BP 112/72; PULSE 88
[~2017-06-04] MED LIST changes: -GADAVIST IV PRN; +OPDIVO IV
[2017-06-04 14:09] VITALS: BP 120/81; PULSE 93; TEMP 36.8; O2SAT 96
--- NOTE | 2017-06-04 16:24 | Radiation Oncology Follow-Up ---
Radiation Oncology Follow-Up Date of Visit Jun 04, 2017. Reason For Visit 6 week follow-up Radiation Completion Date Chest - 04/02/16, Whole Brain - 07/06/16, SBRT Brain - 02/19/17 Diagnosis (1) Lung cancer Status: Chronic Onset Date: 11/03/2014 Location: brain metastasis Histology Subtype: adenocarcinoma Stage: IV Permanent Comment: STAGING: Lung, RLL, adenocarcinoma, [id number], stage UMESH ( metastatic disease to bilateral adrenal glands, intra-adbominal LNs) TREATMENT: 1. Carboplatin/Taxol chemotherapy - Dr. Viera - [facility] [place] 2. Carboplatin/Alimta chemotherapy - Dr. Viera - [facility] [place] - last cycle 01/17/16 3. Status post completion of radiation therapy to PET-positive areas of the chest and bilateral adrenal glands. Radiation completed 04/02/2016 received 6000 cGy. 4. Metastatic disease to the brain - plan for WBRT - 07/06/2016 5. Status post completion of whole brain radiation therapy 07/23/2016 received 3000 cGy 6. Status post brain SBRT completed 02/19/2017 received 3000 cGy Last Edited By: Ellie Lizama on Feb 28, 2017 09:45 History of Present Illness Mr. 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 Patient was initially treated with chemotherapy and had an excellent response to treatment and then received consolidation chemotherapy which completed in March 2016. Of note, the patient did have a complication of adrenal crisis which was eventually controlled. More recently, the patient was having some headaches and Dr. Viera did order an MRI of the brain on 07/06/2016 which did reveal bilateral metastatic disease involving the brain. Dr. Viera did see the patient in follow-up evaluation recommended a course of whole brain radiation therapy. We are now seeing the patient follow up evaluation. Currently, the patient is relatively asymptomatic and his only complaint is headaches. He denies any focal neurologic deficits or any problems with his vision. Dr. Viera did prescribe him Decadron 4 mg 4 times a day. Status post completion of whole brain radiation therapy 07/23/2016 received 3000 cGy He is been doing well over the past 2 months. The headaches that he was having have become less frequent and less painful. He describes these as a mild headache across the back of the posterior occipital area. He'll take Aleve and this resolves. Over this past week he is taking Aleve twice. He has seen Dr. Dominguez in follow-up and had recheck studies. MRI of the brain revealed resolution of previously seen punctate focus of enhancement in the right frontal lobe area interval decrease in size of previously seen additional 6 discrete foci of enhancement involving bilateral cerebral hemispheres, suggestive of treatment response. Interval improvement of the vasogenic edema associated with some of these lesions. He also had a PET/CT which did show a new FDG avid soft tissue change with nodules consistent with metastatic disease superior to the inferior margin of the left scapula. There is just anterior to the left psoas muscle within the retroperitoneum. FDG avidity corresponding to a new right posterior eighth rib fracture. Stable low level activity within fibrotic changes in the right hilum along the right mediastinal border consistent with radiation- induced fibrosis. With these changes Dr. Viera has recommended the patient restart chemotherapy he'll be starting single agent Alimta next Saturday. He is to receive this every 3 weeks. He did note that previously he does recall injuring his rib. He does not have any pain in this area now. Status post completion of whole brain radiation 07/23/2016. He received 3000 cGy He continues on chemotherapy. He is receiving Alimta every 3 weeks. He does have associated fatigue. He has nausea without vomiting. His respiratory status is stable. He does note shortness of breath with exertion. He is able to take breaks and recovering 5 minutes. He previously had oxygen at home. He was not using this so he returned it to the supplier. He does have a home pulse oximeter. He stated that he will be continuing the Alimta until the end of January. Dr. Viera has planned a recheck PET scan at that time. He denies any problems with frequent headaches. He has had no visual changes. He is noted no asymmetric weakness. He continues on his daily dose of prednisone which covers treatment of the RA as well as his adrenal insufficiency. More recently, the patient did have a repeat MRI of the brain completed on 01/11 which revealed stable disease with improvement in several areas. At this point, we have recommended consideration for consolidative linear accelerator based stereotactic radiosurgery to his remaining areas of disease given his good overall response and good performance status. Status post completion of brain SBRT 02/19/2017. He received 3000 cGy. Interim History He's been doing well over the past 2 months. His energy levels have steadily improved. He has not developed any problems with headaches. He's had no nausea. He had 1 treatment with Keytruda. He stated that tumor markers revealed that Opdivo would be a better treatment for him. He's been getting this every 2 weeks. He has had 2 treatments. He denies any side effects. He stated that he will be having recheck scanning in June. He had a recheck MRI of the brain 05/24/2017. He is here for review of that study. Allergies Coded Allergies: POLLEN (Unverified Allergy, Mild, POLLEN,DUST-NASAL CONGESTION, 04/19/16) Diphenhydramine (Verified Allergy, Unknown, Restless legs, 04/19/16) Ethanol (Verified Allergy, Unknown, Flushing, itching, rash, 04/19/16) Paclitaxel (Verified Allergy, Unknown, Flushing, itching, rash, 04/19/16) Polyoxyethylated [place] Oil (Verified Allergy, Unknown, Flushing, itching , rash, 04/19/16) Home Medications Scheduled Multivitamin (Multivitamin), 1 TAB PO DAILY Prednisone (Prednisone), 5 MG PO DAILY [Opdivo], 1 APPLN IV [id number] Scheduled PRN Albuterol Sulfate (Proventil Hfa), 2 PUFFS INH Q4H PRN for Shortness of Breath Fluticasone Propionate (Nasal) (Flonase), 2 SPRAYS INTNAS DAILY PRN for PRN Guaifenesin/Codeine (Robitussin-Ac Syrup), 5 ML PO Q6H PRN for Cough Ondansetron Hcl (Zofran), 8 MG PO TID PRN for Nausea Prochlorperazine Maleate (Compazine), 1 TAB PO Q6 PRN for Nausea or Vomiting Review of Systems Gastrointestinal: Symptoms: WNL Oral: Symptoms: No Problems Respiratory: Symptoms: WNL, SOB With Exertion Sputum Character: "White phlegm" when productive - improving Other Respiratory: SOB w/exertion - improving Urinary: Symptoms: WNL Skin: Symptoms: No Problems Physical Exam Vital Signs Date Time Temp Pulse Resp B/P (MAP) Pulse Ox O2 Delivery O2 Flow Rate FiO2 06/04/17 14:09 36.8 93 16 120/81 96 Fatigue: None General Appearance: no apparent distress Eyes: normal inspection, EOMI ENT: normal ENT inspection, hearing grossly normal Respiratory/Chest: lungs clear, no respiratory distress, no accessory muscle use Cardiovascular: regular rate, rhythm, no gallop, no murmur Extremities: no pedal edema 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 Laboratory Laboratory Results: not applicable Pathology Pathology Results: not applicable Imaging Imaging Studies: were reviewed, and pertinent findings noted below Imaging Comments Patient: BOLA LAZARO Address1: [address] [place] [address] [address] [facility] Rec: [id number] Address2: Acct ID: [id number] [facility] Zip: [place] [address] Date: 1960 Sex: M Room/Bed: Ref Phy: Jass Holland MD SC: C.MRI Att Phy: Ellie Lizama PA-C Report #: [id number] Ivania Phy: Jass Holland MD Test: BANNER Admit Phy: Gag Writer: LUIZ Interpreting Phy: Ben Mcmullen MD Diagnosis: BRAIN TUMOR Ordering Phy: Ellie Lizama PA-C Service Date: 05/24/17 Admit Date: 05/24/17 MNE: [id number] CONF: DICTATED BY: Ben Mcmullen MD]] CC: Jass Holland MD Kline, Angelica, PA-C Endcc: [~ rep ct add3]] MRI OF THE BRAIN WITHOUT AND WITH IV CONTRAST CLINICAL HISTORY: Lung adenocarcinoma with brain metastases status post chemoradiation and immunotherapy. COMPARISON STUDY: MRI of the brain January 11, 2017. TECHNIQUE: Utilizing a 1.5 Marium magnet and dedicated coil, multiplanar, multiecho imaging of the brain was performed pre and postcontrast administration. IV administration of 8.5 mL of Gadavist contrast was uneventful. Thin cut post contrast imaging was performed with multiplanar reconstructions. FINDINGS: There are no foci of restricted diffusion. No acute intracranial hemorrhage, midline shift or mass effect is present. There has been continued decrease in size of the enhancing right frontal lobe lesion shown on axial image 96 of 128 of the thin cut postcontrast sequence. This linear focus of enhancement now measures 0.8 x 0.4 cm. It previously measured 1 x 0.8 cm on MRI of January 11, 2017. Associated signal abnormality on the T2-weighted sequence is similar to prior MRI. A 4 mm left occipital focus shown image 75 is similar to prior MRI. A 3 mm right occipital lobe focus of enhancement shown on image 49 has decreased since prior exam when it measured 5 mm. No new lesions are identified. The additional previously described lesions are no longer identified consistent with a treatment response. Ventricular system is normal. Basilar cisterns are patent. There are no extra-axial collections. Flow-voids for the major intracranial vessels are present. Moderate periventricular white matter T2 hyperintensity has increased since exam of January 11, 2017. There is no associated enhancement. IMPRESSION: 1. Continued decrease in size of several small enhancing parenchymal lesions since MRI of January 11, 2017. The findings represent a continued treatment response with several residual small enhancing foci. No new metastases. 2. Moderate periventricular white matter T2 hyperintensity which has increased since exam of January 11, 2017. No associated enhancement. This is likely treatment related and can be assessed on subsequent exams. Electronically signed by: Ben Mcmullen M.D. 05/24/2017 2:45 PM Dictated Date/Time: 05/24/2017 2:28 PM Assessment & Plan Plan: Patient was seen and examined by Dr. Garcia. He is going to continue the current treatment with Opdivo. It is planned that he'll have recheck imaging in June. We will schedule him for a recheck MRI of the brain in 3 months with a appointment to follow. He may call if he has any questions or concerns in the interim. Assessment & Plan (Attending) I agree with note created by Ellie Lizama PA-C. I reviewed the patient's chart and information with her. I have examined and evaluated the patient. I reviewed relevant clinical information and answered the patient's and/or family' s questions. BEHAVIORAL INTERVENTIONIST Total Time In Follow-Up I spent 15 minutes speaking patient performing examination. I spent 15 minutes reviewing information in completing this note. AK Total Time (Attending) In Follow-Up I spent 15 minutes examining and counseling the patient. BEHAVIORAL INTERVENTIONIST Copy To Jass Holland MD; Cleveland Garcia M.D. Problem Qualifiers (1) Lung cancer: Laterality: right Lung location: lower lobe of lung Qualified Codes: C34.31 - Malignant neoplasm of lower lobe, right bronchus or lung
== END | disposition home or self-care (01) ==
LOC: C.ONC 14:03
PROVIDERS: ATTEND Physician Assistant Medical
DX: Z08 Encounter for follow-up examination after completed treatment for malignant neoplasm (principal); Z92.3 Personal history of irradiation; Z85.118 Personal history of other malignant neoplasm of bronchus and lung

== ENCOUNTER → 2017-08-22 | Outpatient (CLI) | payer OTHER, MEDICARE ==
[~2017-08-22] MED LIST changes: +GADAVIST IV PRN; +ONDA-170 PO; -ONDA8TAB6 PO; +VALA500T60 PO
--- NOTE | 2017-08-22 10:44 | DIAGNOSTIC IMAGING REPORT ---
Brain MRI WITH AND WITHOUT CONTRAST HISTORY: Follow-up. SECONDARY MALIGNANT NEOPLASM OF BRAIN TECHNIQUE: Multiplanar multisequence MRI of the brain was performed both before and after the intravenous administration of contrast. COMPARISON STUDY: Brain MRI 05/24/2017. FINDINGS: The small enhancing lesions within the right high convexity and right occipital lobe on the prior study have resolved. The small lesion within the left parietal lobe on image 90 of 128 of the axial postcontrast sequences has decreased in size from 4 to 2 mm. No new lesions identified. Patchy periventricular white matter T2 hyperintensity, right greater the left remains stable. The ventricles are normal in size. No acute infarct, hematoma, or midline shift. Paranasal sinuses and mastoid air cells are clear. The major vascular flow voids at the skull base are well-maintained. IMPRESSION: Continued treatment response demonstrated by near complete resolution of the intracranial lesions as described above. No new intracranial masses identified. Electronically signed by: Eugene Mederos M.D. 08/22/2017 10:43 AM Dictated Date/Time: 08/22/2017 10:34 AM
== END | disposition home or self-care (01) ==
LOC: C.MRI 09:38
PROVIDERS: ATTEND Physician Assistant Medical
DX: C79.31 Secondary malignant neoplasm of brain (principal)

== ENCOUNTER → 2017-08-23 | Outpatient (CLI) | payer OTHER, MEDICARE ==
[2017-03-29 10:42] VITALS: BP 112/72; PULSE 88
[~2017-08-23] MED LIST changes: -GADAVIST IV PRN
[2017-08-23 09:53] VITALS: BP 105/71; PULSE 96; TEMP 37.1; O2SAT 96
--- NOTE | 2017-08-23 11:30 | Radiation Oncology Follow-Up ---
Radiation Oncology Follow-Up Date of Visit Aug 23, 2017. Reason For Visit 2 month follow-up Radiation Completion Date Chest - 04/02/16, Whole Brain - 07/06/16, SBRT Brain - 02/19/17 Diagnosis (1) Lung cancer Status: Chronic Onset Date: 11/03/2014 Location: Brain metastasis Histology Subtype: Adenocarcinoma Stage: IV Permanent Comment: STAGING: Lung, RLL, adenocarcinoma, [id number], stage UMESH ( metastatic disease to bilateral adrenal glands, intra-adbominal LNs) TREATMENT: 1. Carboplatin/Taxol chemotherapy - Dr. Viera - [facility] [place] 2. Carboplatin/Alimta chemotherapy - Dr. Viera - [facility] [place] - last cycle 01/17/16 3. Status post completion of radiation therapy to PET-positive areas of the chest and bilateral adrenal glands. Radiation completed 04/02/2016 received 6000 cGy. 4. Metastatic disease to the brain - plan for WBRT - 07/06/2016 5. Status post completion of whole brain radiation therapy 07/23/2016 received 3000 cGy 6. Status post brain SBRT completed 02/19/2017 received 3000 cGy Last Edited By: Ellie Lizama on Feb 28, 2017 09:45 History of Present Illness Mr. 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 Patient was initially treated with chemotherapy and had an excellent response to treatment and then received consolidation chemotherapy which completed in March 2016. Of note, the patient did have a complication of adrenal crisis which was eventually controlled. More recently, the patient was having some headaches and Dr. Viera did order an MRI of the brain on 07/06/2016 which did reveal bilateral metastatic disease involving the brain. Dr. Viera did see the patient in follow-up evaluation recommended a course of whole brain radiation therapy. We are now seeing the patient follow up evaluation. Currently, the patient is relatively asymptomatic and his only complaint is headaches. He denies any focal neurologic deficits or any problems with his vision. Dr. Viera did prescribe him Decadron 4 mg 4 times a day. Status post completion of whole brain radiation therapy 07/23/2016 received 3000 cGy He is been doing well over the past 2 months. The headaches that he was having have become less frequent and less painful. He describes these as a mild headache across the back of the posterior occipital area. He'll take Aleve and this resolves. Over this past week he is taking Aleve twice. He has seen Dr. Dominguez in follow-up and had recheck studies. MRI of the brain revealed resolution of previously seen punctate focus of enhancement in the right frontal lobe area interval decrease in size of previously seen additional 6 discrete foci of enhancement involving bilateral cerebral hemispheres, suggestive of treatment response. Interval improvement of the vasogenic edema associated with some of these lesions. He also had a PET/CT which did show a new FDG avid soft tissue change with nodules consistent with metastatic disease superior to the inferior margin of the left scapula. There is just anterior to the left psoas muscle within the retroperitoneum. FDG avidity corresponding to a new right posterior eighth rib fracture. Stable low level activity within fibrotic changes in the right hilum along the right mediastinal border consistent with radiation- induced fibrosis. With these changes Dr. Viera has recommended the patient restart chemotherapy he'll be starting single agent Alimta next Saturday. He is to receive this every 3 weeks. He did note that previously he does recall injuring his rib. He does not have any pain in this area now. Status post completion of whole brain radiation 07/23/2016. He received 3000 cGy He continues on chemotherapy. He is receiving Alimta every 3 weeks. He does have associated fatigue. He has nausea without vomiting. His respiratory status is stable. He does note shortness of breath with exertion. He is able to take breaks and recovering 5 minutes. He previously had oxygen at home. He was not using this so he returned it to the supplier. He does have a home pulse oximeter. He stated that he will be continuing the Alimta until the end of January. Dr. Viera has planned a recheck PET scan at that time. He denies any problems with frequent headaches. He has had no visual changes. He is noted no asymmetric weakness. He continues on his daily dose of prednisone which covers treatment of the RA as well as his adrenal insufficiency. More recently, the patient did have a repeat MRI of the brain completed on 01/11 which revealed stable disease with improvement in several areas. At this point, we have recommended consideration for consolidative linear accelerator based stereotactic radiosurgery to his remaining areas of disease given his good overall response and good performance status. Status post completion of brain SBRT 02/19/2017. He received 3000 cGy. Interim History He has been doing well over the past 2 months. He denies any problems with headaches or dizziness. He did unfortunately develop herpes zoster. This was on the side of his head. He was seen and treated with Valtrex. He took this 3 times a day for 10 days. He now continues on a maintenance dose of 1 a day. He receives Opdivo every 2 weeks. He is tolerating the medication well. He continues on the prednisone therapy to treat the adrenal insufficiency. He feels his energy levels have improved. He feels he is also gaining some muscle strength in his legs. He does have some decreased strength when going up steps. Allergies Coded Allergies: POLLEN (Unverified Allergy, Mild, POLLEN,DUST-NASAL CONGESTION, 04/19/16) Diphenhydramine (Verified Allergy, Unknown, Restless legs, 04/19/16) Ethanol (Verified Allergy, Unknown, Flushing, itching, rash, 04/19/16) Paclitaxel (Verified Allergy, Unknown, Flushing, itching, rash, 04/19/16) Polyoxyethylated Bazine Oil (Verified Allergy, Unknown, Flushing, itching , rash, 04/19/16) Home Medications Scheduled Multivitamin (Multivitamin), 1 TAB PO DAILY Prednisone (Prednisone), 5 MG PO DAILY Valacyclovir (Valtrex), 1 TAB PO DAILY [Opdivo], 1 APPLN IV [id number] Scheduled PRN Albuterol Sulfate (Proventil Hfa), 2 PUFFS INH Q4H PRN for Shortness of Breath Fluticasone Propionate (Nasal) (Flonase), 2 SPRAYS INTNAS DAILY PRN for PRN Guaifenesin/Codeine (Robitussin-Ac Syrup), 5 ML PO Q6H PRN for Cough Ondansetron Hcl (Zofran), 8 MG PO TID PRN for Nausea Prochlorperazine Maleate (Compazine), 1 TAB PO Q6 PRN for Nausea or Vomiting Review of Systems Gastrointestinal: Symptoms: WNL, Constipation, Diarrhea GI Comments: Goes between diarrhea and constipation Oral: Symptoms: No Problems Respiratory: Symptoms: WNL, SOB With Exertion Sputum Character: "White phlegm" when productive - improving Other Respiratory: KELLY Urinary: Symptoms: WNL Skin: Symptoms: No Problems Physical Exam Vital Signs Date Time Temp Pulse Resp B/P (MAP) Pulse Ox O2 Delivery O2 Flow Rate FiO2 08/23/17 09:53 37.1 96 16 105/71 96 Fatigue: None General Appearance: no apparent distress Eyes: normal inspection, PERRL, EOMI ENT: normal ENT inspection, hearing grossly normal Neck: no adenopathy, thyroid normal Respiratory/Chest: lungs clear, no respiratory distress, no accessory muscle use Cardiovascular: regular rate, rhythm, no gallop, no murmur Abdomen: non tender, soft, no organomegaly Extremities: no pedal edema 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 Laboratory Laboratory Results: not applicable Pathology Pathology Results: were reviewed, and pertinent findings noted in HPI Imaging Imaging Studies: were reviewed, and pertinent findings noted below Imaging Comments Brain MRI WITH AND WITHOUT CONTRAST HISTORY: Follow-up. SECONDARY MALIGNANT NEOPLASM OF BRAIN TECHNIQUE: Multiplanar multisequence MRI of the brain was performed both before and after the intravenous administration of contrast. COMPARISON STUDY: Brain MRI 05/24/2017. FINDINGS: The small enhancing lesions within the right high convexity and right occipital lobe on the prior study have resolved. The small lesion within the left parietal lobe on image 90 of 128 of the axial postcontrast sequences has decreased in size from 4 to 2 mm. No new lesions identified. Patchy periventricular white matter T2 hyperintensity, right greater the left remains stable. The ventricles are normal in size. No acute infarct, hematoma, or midline shift. Paranasal sinuses and mastoid air cells are clear. The major vascular flow voids at the skull base are well-maintained. IMPRESSION: Continued treatment response demonstrated by near complete resolution of the intracranial lesions as described above. No new intracranial masses identified. Electronically signed by: Eugene Mederos M.D. 08/22/2017 10:43 AM Dictated Date/Time: 08/22/2017 10:34 AM Assessment & Plan Plan: He was seen and examined by Dr. Garcia. Continue regular follow-up with his primary care provider and medical oncology. He has had an excellent response to treatment. We will plan a recheck MRI of the brain following SRS protocol again in 3 months. An appointment will be given following the MRI to review the results. We discussed strengthening exercises to help improve going up and down steps. He has minimal residual pain after having the herpes zoster. I reviewed with him that he could use [id number] Zostrix for pain if needed. He felt that the pain is minimal but will keep the Zostrix in mind if he feels that he needs something for discomfort. Assessment & Plan (Attending) I agree with note created by Ellie Lizama PA-C. I reviewed the patient's chart and information with her. I have examined and evaluated the patient. I reviewed relevant clinical information and answered the patient's and/or family' s questions. NOTE SPECIALIST Total Time In Follow-Up I spent 20 minutes speaking to the patient in performing examination. I spent 15 minutes reviewing information and completing this note. AK Total Time (Attending) In Follow-Up I spent 15 minutes examining and counseling the patient. NOTE SPECIALIST Copy To Jass Holland MD; Cleveland Garcia M.D.
== END | disposition home or self-care (01) ==
LOC: C.ONC 09:49
PROVIDERS: ATTEND Physician Assistant Medical
DX: Z08 Encounter for follow-up examination after completed treatment for malignant neoplasm (principal); Z92.3 Personal history of irradiation; Z85.118 Personal history of other malignant neoplasm of bronchus and lung

== ENCOUNTER → 2017-11-25 | Outpatient (CLI) | payer OTHER, MEDICARE ==
[~2017-11-25] MED LIST changes: +GADAVIST IV PRN; +PROC10TA PO; -PROC1TAB5 PO
--- NOTE | 2017-11-25 09:32 | DIAGNOSTIC IMAGING REPORT ---
MRI OF THE BRAIN WITHOUT AND WITH IV CONTRAST CLINICAL HISTORY: Metastatic lung carcinoma COMPARISON STUDY: August 22, 2017 TECHNIQUE: MRI of the brain was performed from the vertex to the skull base utilizing various T1 and T2 weighted sequences. Following the IV administration of 8.5 mL of Gadavist contrast, additional enhanced images were obtained. FINDINGS: Sagittal T1, axial diffusion, proton density and T2 weighted axial, coronal FLAIR, and pre and post axial T1-weighted images were acquired. These were supplemented with post gadolinium coronal T1 weighted images. There is a stable 2 mm focus of enhancement within the left parietal lobe without surrounding vasogenic edema. This remains unchanged the prior study. No additional lesions are visualized. Axial diffusion-weighted images reveal no evidence of acute or subacute infarction. There is no evidence of ventricular dilatation. Proton density T2-weighted and FLAIR images reveal stable foci of increased T2 signal within the white matter. There are no abnormal flow voids. There is a stable 2 mm enhancing lesion within the left parietal lobe. IMPRESSION: 1. Stable 2 mm enhancing lesion within the left parietal lobe. No surrounding vasogenic edema 2. No new or enlarging lesions are visualized. 3. No evidence of acute or subacute infarction Electronically signed by: Robinson Jc M.D. 11/25/2017 9:31 AM Dictated Date/Time: 11/25/2017 9:20 AM
== END | disposition home or self-care (01) ==
LOC: C.MRI 08:28
PROVIDERS: ATTEND Physician Assistant Medical
DX: C34.31 Malignant neoplasm of lower lobe, right bronchus or lung (principal); C79.31 Secondary malignant neoplasm of brain

== ENCOUNTER → 2017-11-26 | Outpatient (CLI) | payer OTHER, MEDICARE ==
[~2017-11-26] MED LIST changes: -GADAVIST IV PRN
[2017-11-26 13:38] VITALS: BP 90/64; PULSE 100; TEMP 36.2; O2SAT 96
--- NOTE | 2017-11-26 15:26 | Radiation Oncology Follow-Up ---
Radiation Oncology Follow-Up Date of Visit Nov 26, 2017. Reason For Visit 3 month follow-up Radiation Completion Date SBRT brain 02/19/17 Diagnosis (1) Lung cancer Status: Chronic Onset Date: 11/03/2014 Stage: IV Permanent Comment: STAGING: Lung, RLL, adenocarcinoma, [id number], stage UMESH ( metastatic disease to bilateral adrenal glands, intra-adbominal LNs) TREATMENT: 1. Carboplatin/Taxol chemotherapy - [place]. Viera [place] [facility] [place]. Carboplatin/Alimta chemotherapy - Dr. Viera - [facility] [place] - last cycle 01/17/16 3. Status post completion of radiation therapy to PET-positive areas of the chest and bilateral adrenal glands. Radiation completed 04/02/2016 received 6000 cGy. 4. Metastatic disease to the brain - plan for WBRT - 07/06/2016 5. Status post completion of whole brain radiation therapy 07/23/2016 received 3000 cGy 6. Status post brain SBRT completed 02/19/2017 received 3000 cGy 7. Opdivo every 2 weeks[address] - Dr. Garcia Last Edited By: Ellie Lizama on Oct 15:25 History of Present Illness Mr. 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 Patient was initially treated with chemotherapy and had an excellent response to treatment and then received consolidation chemotherapy which completed in March 2016. Of note, the patient did have a complication of adrenal crisis which was eventually controlled. More recently, the patient was having some headaches and Dr. Viera did order an MRI of the brain on 07/06/2016 which did reveal bilateral metastatic disease involving the brain. Dr. Virea did see the patient in follow-up evaluation recommended a course of whole brain radiation therapy. We are now seeing the patient follow up evaluation. Currently, the patient is relatively asymptomatic and his only complaint is headaches. He denies any focal neurologic deficits or any problems with his vision. Dr. Viera did prescribe him Decadron 4 mg 4 times a day. Status post completion of whole brain radiation therapy 07/23/2016 received 3000 cGy He is been doing well over the past 2 months. The headaches that he was having have become less frequent and less painful. He describes these as a mild headache across the back of the posterior occipital area. He'll take Aleve and this resolves. Over this past week he is taking Aleve twice. He has seen Dr. Dominguez in follow-up and had recheck studies. MRI of the brain revealed resolution of previously seen punctate focus of enhancement in the right frontal lobe area interval decrease in size of previously seen additional 6 discrete foci of enhancement involving bilateral cerebral hemispheres, suggestive of treatment response. Interval improvement of the vasogenic edema associated with some of these lesions. He also had a PET/CT which did show a new FDG avid soft tissue change with nodules consistent with metastatic disease superior to the inferior margin of the left scapula. There is just anterior to the left psoas muscle within the retroperitoneum. FDG avidity corresponding to a new right posterior eighth rib fracture. Stable low level activity within fibrotic changes in the right hilum along the right mediastinal border consistent with radiation- induced fibrosis. With these changes Dr. Viera has recommended the patient restart chemotherapy he'll be starting single agent Alimta next Saturday. He is to receive this every 3 weeks. He did note that previously he does recall injuring his rib. He does not have any pain in this area now. Status post completion of whole brain radiation 07/23/2016. He received 3000 cGy He continues on chemotherapy. He is receiving Alimta every 3 weeks. He does have associated fatigue. He has nausea without vomiting. His respiratory status is stable. He does note shortness of breath with exertion. He is able to take breaks and recovering 5 minutes. He previously had oxygen at home. He was not using this so he returned it to the supplier. He does have a home pulse oximeter. He stated that he will be continuing the Alimta until the end of January. Dr. Viera has planned a recheck PET scan at that time. He denies any problems with frequent headaches. He has had no visual changes. He is noted no asymmetric weakness. He continues on his daily dose of prednisone which covers treatment of the RA as well as his adrenal insufficiency. More recently, the patient did have a repeat MRI of the brain completed on 01/11 which revealed stable disease with improvement in several areas. At this point, we have recommended consideration for consolidative linear accelerator based stereotactic radiosurgery to his remaining areas of disease given his good overall response and good performance status. Status post completion of brain SBRT 02/19/2017. He received 3000 cGy. Interim History He has been doing well over the past 3 months. He has occasional minor headache. This does not require any prescriptive or [id number] medications. He continues on immunotherapy every 2 weeks. He feels that his short-term memory has improved over the past few months. He has had increased energy levels. There is been no change of vision. He was concerned about his blood counts. He stated that 2 nurses have told him he looks pale. He had a recheck MRI November 25, 2017. He is here to review the results. Allergies Coded Allergies: POLLEN (Unverified Allergy, Mild, POLLEN,DUST-NASAL CONGESTION, 04/19/16) Diphenhydramine (Verified Allergy, Unknown, Restless legs, 04/19/16) Ethanol (Verified Allergy, Unknown, Flushing, itching, rash, 04/19/16) Paclitaxel (Verified Allergy, Unknown, Flushing, itching, rash, 04/19/16) Polyoxyethylated Alford Oil (Verified Allergy, Unknown, Flushing, itching , rash, 04/19/16) Home Medications Scheduled Multivitamin (Multivitamin), 1 TAB PO DAILY Prednisone (Prednisone), 5 MG PO DAILY [Opdivo], 1 APPLN IV [id number] Scheduled PRN Albuterol Sulfate (Proventil Hfa), 2 PUFFS INH Q4H PRN for Shortness of Breath Fluticasone Propionate (Nasal) (Flonase), 2 SPRAYS INTNAS DAILY PRN for PRN Guaifenesin/Codeine (Robitussin-Ac Syrup), 5 ML PO Q6H PRN for Cough Ondansetron Hcl (Zofran), 8 MG PO TID PRN for Nausea Prochlorperazine Maleate (Compazine), 1 TAB PO Q6 PRN for Nausea or Vomiting Review of Systems Gastrointestinal: Symptoms: WNL Oral: Symptoms: No Problems Respiratory: Symptoms: Moist Cough Sputum Character: Moist sounding cough to almost just throat clearing Urinary: Symptoms: WNL Skin: Symptoms: No Problems Physical Exam Vital Signs Date Time Temp Pulse Resp B/P (MAP) Pulse Ox O2 Delivery O2 Flow Rate FiO2 11/26/17 13:38 36.2 100 16 90/64 96 Fatigue: None General Appearance: no apparent distress Eyes: normal inspection, EOMI ENT: normal ENT inspection, hearing grossly normal, pharynx normal Neck: no adenopathy, thyroid normal Respiratory/Chest: lungs clear, no respiratory distress, no accessory muscle use Cardiovascular: regular rate, rhythm, no gallop, no murmur Extremities: no pedal edema 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 Laboratory Laboratory Results: were reviewed Laboratory Comments: Hemoglobin at 13 on November 18. Pathology Pathology Results: were reviewed, and pertinent findings noted in HPI Imaging Imaging Studies: were reviewed, and pertinent findings noted below Imaging Comments Patient: BOLA LAZARO Address1: [address] [place] [address] [address] Med Rec: [id number] Address2: Acct ID: [id number] [facility] Zip: [place] [address] Date: 1960 Sex: M Room/Bed: Ref Phy: Jass Holland MD SC: C.MRI Att Phy: Ellie Lizama PA-C Report #: [id number] Ivania Phy: Ellie Lizama PA-C Test: [facility] Admit Phy: Computer Application Developer: LUIZ Interpreting Phy: Robinson Jc M.D. Diagnosis: METASTATIC LUNG CA TO BRAIN *SRS PROTOCAL Ordering Phy: Ellie Lizama PA-C Service Date: 11/25/17 Admit Date: 11/25/17 MNE: [id number] CONF: DICTATED BY: Robinson Jc M.D.]] CC: Jass Holland MD Kline, Angelica, PA-C Endcc: [~ rep ct add3]] MRI OF THE BRAIN WITHOUT AND WITH IV CONTRAST CLINICAL HISTORY: Metastatic lung carcinoma COMPARISON STUDY: August 22, 2017 TECHNIQUE: MRI of the brain was performed from the vertex to the skull base utilizing various T1 and T2 weighted sequences. Following the IV administration of 8.5 mL of Gadavist contrast, additional enhanced images were obtained. FINDINGS: Sagittal T1, axial diffusion, proton density and T2 weighted axial, coronal FLAIR, and pre and post axial T1-weighted images were acquired. These were supplemented with post gadolinium coronal T1 weighted images. There is a stable 2 mm focus of enhancement within the left parietal lobe without surrounding vasogenic edema. This remains unchanged the prior study. No additional lesions are visualized. Axial diffusion-weighted images reveal no evidence of acute or subacute infarction. There is no evidence of ventricular dilatation. Proton density T2-weighted and FLAIR images reveal stable foci of increased T2 signal within the white matter. There are no abnormal flow voids. There is a stable 2 mm enhancing lesion within the left parietal lobe. IMPRESSION: 1. Stable 2 mm enhancing lesion within the left parietal lobe. No surrounding vasogenic edema 2. No new or enlarging lesions are visualized. 3. No evidence of acute or subacute infarction Electronically signed by: Robinson Jc M.D. 11/25/2017 9:31 AM Dictated Date/Time: 11/25/2017 9:20 AM Assessment & Plan Plan: Continue regular follow-up with medical oncology. He will be seeing Dr. Garcia December 16, 2017. He continues on immunotherapy. We reviewed his most recent CBC. Hemoglobin was at 13. We reviewed his MRI. There is a stable 2 mm enhancing lesion within the left parietal lobe. There are no new or enlarging lesions visualized. MRI is ordered for 3 months and a follow-up visit. We discussed exercises to help improve endurance. He was seen and examined by Dr. Garcia. He may call our office if he has any questions or concerns in the interim. Assessment & Plan (Attending) I agree with note created by Ellie Lizama PA-C. I reviewed the patient's chart and information with her. I have examined and evaluated the patient. I reviewed relevant clinical information and answered the patient's and/or family' s questions. OTC CLERK Total Time In Follow-Up I spent 20 minutes speaking to the patient in performing examination. I spent 15 minutes reviewing information and completing this note. AK Total Time (Attending) In Follow-Up I spent 15 minutes examining and counseling the patient. OTC CLERK Copy To Jass Holland MD; [place] Garcia M.D.
== END | disposition home or self-care (01) ==
LOC: C.ONC 13:33
PROVIDERS: ATTEND Physician Assistant Medical
DX: Z08 Encounter for follow-up examination after completed treatment for malignant neoplasm (principal); Z92.3 Personal history of irradiation; Z85.118 Personal history of other malignant neoplasm of bronchus and lung